=== PATIENT | female | born 1945 | race African-American/Black ===

== ENCOUNTER → 2017-07-11 09:15 | Outpatient (CLI) | payer MEDICARE, OTHER, SELFPAY ==
--- NOTE | 2017-07-11 09:19 | MM_ITS ---
MM Dig SC mamm unilat RT CAD CAD Screening ORDERING PHYSICIAN : Can Noble PATIENT AGE: 71 years GENDER: Female COMPARISON: Previous mammograms: March 2015, September 2013, March 2010 INDICATION: Routine screening. Left mastectomy. No new complaints. Noncontributory family history. TECHNIQUE: Standard CC and MLO images right breast only.. R2 CAD reviewed. FINDINGS: Low-density right breast. With no significant new findings. The minimal fibroglandular elements retroareolar region appear similar and unchanged. A few small scattered benign calcifications noted. Not of concern stable axillary lymph nodes cerebral CAD review highlights no areas of concern either IMPRESSION:...... Negative right mammogram Stable right mammogram. No significant new findings. Follow-up in one year BI-RADS Category: 1 Negative RECOMMENDED FOLLOW-UP: 1YR - 1 YEAR FOLLOW-UP (A letter has been sent to the patient regarding results of the study.)
== END ==
PROVIDERS: Family Provider Family Medicine; PCP Family Medicine; Visit Provider Family Medicine
DX: Z12.31 Encounter for screening mammogram for malignant neoplasm of breast (principal)
CPT/HCPCS: 77067

== ENCOUNTER → 2019-10-23 09:04 | Outpatient (CLI) | payer MEDICARE, OTHER, SELFPAY ==
--- NOTE | 2019-10-23 09:11 | MM_ITS ---
PROCEDURE: MM DIG SC MAMM UNILAT RT CAD Digital Breast Tomosynthesis Included CLINICAL INDICATION: SCREENING rt breast, h/o lt breast cancer and masectomy COMPARISON: DIG MAMMO DIAG UNI RIGHT from 10/20/2013 [facility] DIG MAMM-SCREENING UNI-RT from 04/05/2015 [facility] MM Dig SC mamm unilat RT CAD from 07/11/2017 TECHNIQUE: Standard CC and MLO images and 3D Tomosynthesis was obtained. R2 CAD reviewed. FINDINGS: The breast is composed primarily of fat with minimal scattered fibroglandular elements as noted previously. There are few benign-appearing occasions which were seen previously and are stable. Tc images were reviewed showing no suspicious abnormality. There are no suspicious microcalcifications. IMPRESSION: Stable exam with low-density fatty breast and no suspicious lesions seen BI-RAD Category: 2 Benign Finding(s) FOLLOW-UP: (A letter has been sent to the patient regarding results of the study.) Dictated by: Dr. Samy Vo MD 10/25/2019 14:[address] Samy Vo MD in [place] 10/25/2019 14:26
== END ==
PROVIDERS: PCP Family Medicine; Visit Provider Family Medicine
DX: Z12.31 Encounter for screening mammogram for malignant neoplasm of breast (principal); Z85.3 Personal history of malignant neoplasm of breast
CPT/HCPCS: 77063; 77067